=== PATIENT | male | born 1975 | race Caucasian/White ===

== ENCOUNTER → 2019-03-18 | Outpatient (REF) ==
--- NOTE | 2019-03-18 14:16 | Diagnostic Imaging Report ---
EXAMINATION: Right shoulder at 02:01 p.m. INDICATION: Injury, shoulder pain. FINDINGS: Three views were obtained. There are no prior studies available for comparison. There is no fracture, dislocation, or acute bony abnormality evident. There is only mild degenerative disease of the shoulder joint. The soft tissues are unremarkable. IMPRESSION: There is no evidence for an acute bony abnormality. Dictated by: Dictated on workstation # [id number]
== END | disposition home or self-care (01) ==
LOC: RAD 13:51
PROVIDERS: ATTEND Nurse Practitioner Family
CPT/HCPCS: 73030

== ENCOUNTER → 2019-03-25 | Outpatient (REF) ==
--- NOTE | 2019-03-25 16:20 | Diagnostic Imaging Report ---
INDICATION: Right anterior chest wall pain. PA and lateral chest. FINDINGS: Heart size and pulmonary vascularity are normal. Lungs are clear. There are no effusions or pneumothoraces. IMPRESSION: Negative chest. Dictated by: Dictated on workstation # [id number]
== END | disposition home or self-care (01) ==
LOC: RAD 15:52
PROVIDERS: ATTEND Nurse Practitioner Family
CPT/HCPCS: 71046

== ENCOUNTER → 2019-03-26 | Outpatient (REF) | END | disposition home or self-care (01) | LOC: RAD 08:25 | PROVIDERS: ATTEND Nurse Practitioner Family ==

== ENCOUNTER → 2019-04-08 | Outpatient (CLI) | payer OTHER | LOC: ORTHO 08:59 | PROVIDERS: ATTEND Orthopaedic Surgery | DX: S46.011A Strain of muscle(s) and tendon(s) of the rotator cuff of right shoulder, initial encounter (principal); X50.0XXA Overexertion from strenuous movement or load, initial encounter; Y99.0 Civilian activity done for income or pay ==

== ENCOUNTER → 2019-04-22 | Outpatient (CLI) | payer OTHER | LOC: ORTHO 09:15 | PROVIDERS: ATTEND Orthopaedic Surgery | DX: S46.011A Strain of muscle(s) and tendon(s) of the rotator cuff of right shoulder, initial encounter (principal); X50.0XXA Overexertion from strenuous movement or load, initial encounter; Y99.0 Civilian activity done for income or pay | CPT/HCPCS: 99213 ==

== ENCOUNTER → 2019-05-06 | Outpatient (CLI) | payer OTHER | LOC: ORTHO 09:27 | PROVIDERS: ATTEND Orthopaedic Surgery | DX: S46.011A Strain of muscle(s) and tendon(s) of the rotator cuff of right shoulder, initial encounter (principal); X50.0XXA Overexertion from strenuous movement or load, initial encounter; Y99.0 Civilian activity done for income or pay | CPT/HCPCS: 99213 ==

== ENCOUNTER → 2019-05-20 | Outpatient (CLI) | payer OTHER | LOC: ORTHO 09:21 | PROVIDERS: ATTEND Orthopaedic Surgery | DX: S46.011A Strain of muscle(s) and tendon(s) of the rotator cuff of right shoulder, initial encounter (principal); X50.0XXA Overexertion from strenuous movement or load, initial encounter; Y99.0 Civilian activity done for income or pay | CPT/HCPCS: 99213 ==

== ENCOUNTER → 2019-06-10 | Outpatient (CLI) | payer OTHER | LOC: ORTHO 09:21 | PROVIDERS: ATTEND Orthopaedic Surgery | DX: S46.011A Strain of muscle(s) and tendon(s) of the rotator cuff of right shoulder, initial encounter (principal); X50.0XXA Overexertion from strenuous movement or load, initial encounter; Y99.0 Civilian activity done for income or pay | CPT/HCPCS: 99213 ==

== ENCOUNTER → 2019-07-01 | Outpatient (CLI) | payer OTHER | LOC: ORTHO 09:20 | PROVIDERS: ATTEND Orthopaedic Surgery | DX: S46.011A Strain of muscle(s) and tendon(s) of the rotator cuff of right shoulder, initial encounter (principal); X50.0XXA Overexertion from strenuous movement or load, initial encounter; Y99.0 Civilian activity done for income or pay | CPT/HCPCS: 99213 ==

== ENCOUNTER → 2019-07-22 | Outpatient (CLI) | payer OTHER | LOC: ORTHO 09:21 | PROVIDERS: ATTEND Orthopaedic Surgery | DX: S46.011A Strain of muscle(s) and tendon(s) of the rotator cuff of right shoulder, initial encounter (principal); X50.0XXA Overexertion from strenuous movement or load, initial encounter; Y99.0 Civilian activity done for income or pay | CPT/HCPCS: 99213 ==

== ENCOUNTER → 2019-08-19 | Outpatient (CLI) | payer OTHER | LOC: ORTHO 09:00 | PROVIDERS: ATTEND Orthopaedic Surgery | DX: S46.011A Strain of muscle(s) and tendon(s) of the rotator cuff of right shoulder, initial encounter (principal); X50.0XXA Overexertion from strenuous movement or load, initial encounter; Y99.0 Civilian activity done for income or pay | CPT/HCPCS: 99213 ==

== ENCOUNTER → 2019-09-16 | Outpatient (CLI) | payer OTHER | LOC: ORTHO 09:15 | PROVIDERS: ATTEND Orthopaedic Surgery | DX: S46.011D Strain of muscle(s) and tendon(s) of the rotator cuff of right shoulder, subsequent encounter (principal); X50.0XXD Overexertion from strenuous movement or load, subsequent encounter | CPT/HCPCS: 99213 ==

== ENCOUNTER → 2019-10-14 | Outpatient (CLI) | payer OTHER | LOC: ORTHO 09:38 | PROVIDERS: ATTEND Orthopaedic Surgery | DX: S49.91XD Unspecified injury of right shoulder and upper arm, subsequent encounter (principal); X58.XXXD Exposure to other specified factors, subsequent encounter | CPT/HCPCS: 99213 ==

== ENCOUNTER → 2019-11-11 | Outpatient (CLI) | payer OTHER | LOC: ORTHO 09:38 | PROVIDERS: ATTEND Orthopaedic Surgery | DX: S49.91XD Unspecified injury of right shoulder and upper arm, subsequent encounter (principal); X58.XXXD Exposure to other specified factors, subsequent encounter | CPT/HCPCS: 99213 ==

== ENCOUNTER → 2019-12-09 | Outpatient (CLI) | payer OTHER | LOC: ORTHO 09:44 | PROVIDERS: ATTEND Orthopaedic Surgery | DX: S49.91XD Unspecified injury of right shoulder and upper arm, subsequent encounter (principal); X58.XXXD Exposure to other specified factors, subsequent encounter ==

== ENCOUNTER 2020-02-22 11:51 | Emergency (ER) | payer OTHER, BC ==
[~2020-02-22] VITALS: Ht 180.3 cm; Wt 131.5 kg
[2020-02-22] MEDS ORDERED: TETANUS,DIPTH,PERTUSS P/F (BOOSTRIX) 0.5 ML VIAL IM ONE (12:00)
[2020-02-22 12:05] LABS: BASOPHILS # (AUTO) 0.1 10^3/uL (0.0-0.1); BASOPHILS % (AUTO) 0 % (0-10); EOSINOPHILS # (AUTO) 0.2 10^3/uL (0.0-0.3); EOSINOPHILS % (AUTO) 1 % (0-10); HEMATOCRIT 45 % (40-54); LYMPHOCYTES # (AUTO) 5.3 X 10^3 (1.0-4.0); LYMPHOCYTES % (AUTO) 38 % (12-44); MEAN CORPUSCULAR HEMOGLOBIN 30 PG (25-34); MEAN CORPUSCULAR HGB CONC 33 G/DL (32-36); MEAN CORPUSCULAR VOLUME 90 FL (80-99); MEAN PLATELET VOLUME 8.8 FL (7.4-10.4); MONOCYTES # (AUTO) 1.5 X 10^3 (0.0-1.0); MONOCYTES % (AUTO) 11 % (0-12); NEUTROPHILS # (AUTO) 7.1 X 10^3 (1.8-7.8); NEUTROPHILS % (AUTO) 50 % (42-75); PLATELET COUNT 451 10^3/uL (130-400); RED CELL DISTRIBUTION WIDTH 14.8 % (10.0-14.5)
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
[2020-02-22 12:18] LABS: ALBUMIN 4.1 GM/DL (3.2-4.5); CHLORIDE 106 MMOL/L (98-107); POTASSIUM 3.9 MMOL/L (3.6-5.0); SODIUM 140 MMOL/L (135-145)
[2020-02-22 12:20] LABS: CALCIUM 9.9 MG/DL (8.5-10.1)
[2020-02-22 12:21] LABS: GLUCOSE 111 MG/DL (70-105); INR 0.9 (0.8-1.4); TOTAL PROTEIN 7.7 GM/DL (6.4-8.2)
[2020-02-22 12:22] LABS: CARBON DIOXIDE 23 MMOL/L (21-32)
[2020-02-22 12:23] LABS: BILIRUBIN,TOTAL 0.3 MG/DL (0.1-1.0)
[2020-02-22 12:24] LABS: ALKALINE PHOSPHATASE 69 U/L (40-136); CREATININE SERUM 0.84 MG/DL (0.60-1.30); GFR ESTIMATED > 60
[2020-02-22 12:25] LABS: BUN/CREATININE RATIO 12
[2020-02-22 12:27] LABS: ALANINE AMINOTRANSFERASE 113 U/L (0-55)
--- NOTE | 2020-02-22 12:32 | Diagnostic Imaging Report ---
PROCEDURE: CT head, face, and cervical spine without contrast. TECHNIQUE: Multiple contiguous axial images were obtained through the head, neck, and facial bones without the use of intravenous contrast. Sagittal and coronal reformations through the cervical spine and facial bones were also performed. Auto Exposure Controls were utilized during the CT exam to meet ALARA standards for radiation dose reduction. INDICATION: Right head facial trauma. No prior studies are available for comparison. CT HEAD: Ventricles and sulci are within normal limits. No sulcal effacement or midline shift is identified. No acute intra-axial or extra-axial hemorrhage is detected. Cisterns are patent. Visualized paranasal sinuses are clear. There is some soft tissue swelling and probable hematoma in the tissues at the level of the right lateral orbit. IMPRESSION: 1. No acute intracranial process detected. 2. Soft tissue swelling lateral to the right orbit. CT CERVICAL SPINE: Alignment is normal. There is multilevel degenerative disc disease with disc space narrowing and marginal spurring, greatest at C5-C6 and C6-C7 levels. No fractures are identified. The odontoid is intact. IMPRESSION: Lower cervical spondylosis. No acute bony abnormality is detected. CT FACE: The mandible is intact. The zygomatic arches are intact. The maxillary sinus martínez, orbital martínez and nasal bones appear to be intact. Visualized paranasal sinuses are clear. Mastoids are well aerated. There is some mild soft tissue swelling right face, just lateral to the right orbit at the level of the zygomaticofrontal suture. IMPRESSION: Right facial soft tissue swelling. No facial bone fracture is detected. Dictated by: Dictated on workstation # [id number]
[2020-02-22 12:35] LABS: LYMPHOCYTES % (MANUAL) 35 %; MONOCYTES % (MANUAL) 8 %; NEUTROPHILS % (MANUAL) 57 %; RBC MORPH NORMAL
--- NOTE | 2020-02-22 12:36 | Diagnostic Imaging Report ---
INDICATION: Trauma, head injury. TIME OF EXAM: 12:29 PM. COMPARISON: 03/25/2019. FINDINGS: The heart size is normal. The pulmonary vascularity is unremarkable. The lungs are clear. No infiltrate, effusion, or pneumothorax is detected. IMPRESSION: No acute cardiopulmonary process is detected. Dictated by: Dictated on workstation # [id number]
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
[2020-02-22] MEDS ORDERED: SULF1TAB35 PO (13:11)
[2020-02-22 14:32] VITALS: BP 139/85
== END 2020-02-22 14:32 | disposition home or self-care (01) ==
LOC: EDUNIT# 11:51 → ER 11:52
DX: S01.111A Laceration without foreign body of right eyelid and periocular area, initial encounter (principal); S00.83XA Contusion of other part of head, initial encounter; S40.011A Contusion of right shoulder, initial encounter; S16.1XXA Strain of muscle, fascia and tendon at neck level, initial encounter; E66.9 Obesity, unspecified; R40.2142 Coma scale, eyes open, spontaneous, at arrival to emergency department; R40.2252 Coma scale, best verbal response, oriented, at arrival to emergency department; R40.2362 Coma scale, best motor response, obeys commands, at arrival to emergency department; Z23 Encounter for immunization; Z88.8 Allergy status to other drugs, medicaments and biological substances; W22.8XXA Striking against or struck by other objects, initial encounter; Y92.59 Other trade areas as the place of occurrence of the external cause
CPT/HCPCS: 12051; 36415; 70450; 70486; 71045; 72125; 73030; 80053; 80320; 85007; 85027; 85610; 85730; 90715; 93041